=== PATIENT | female | born 1965 | race Caucasian/White ===

== ENCOUNTER 2021-12-11 08:34 | Day surgery (SDC) | payer OTHER ==
[2021-12-06 10:40] VITALS: BMI 24.7
[~2021-12-11 08:34] MED LIST: LACTATED RINGERS 1,000 ML IV SCH; LIDOCAINE 1% (10MG/ML) FOR IV START INTRADERMA PRN
[2021-12-11 09:11] VITALS: TEMP 98.9
[2021-12-11] MEDS ORDERED: PROPOFOL 10 MG/ML 20 ML VIAL IV ONE (09:56)
--- NOTE | 2021-12-11 10:13 | P.PCN ---
Date of Procedure: 12/11/21 Procedure(s) Performed: BRIEF HISTORY: Patient is a 56-year-old pleasant female scheduled for an elective colonoscopy as a part of evaluation of prior history of colon polyps. PROCEDURE PERFORMED: Colonoscopy. PREOPERATIVE DIAGNOSIS: History of colon polyps. IV sedation per Anesthesia. PROCEDURE: After informed consent was obtained, the patient, was brought into the endoscopy unit. IV sedation was administered by Anesthesia under continuous monitoring. Digital rectal examination was normal. Initially the Olympus CF-160 flexible video colonoscope was then inserted in the rectum, gradually advanced into the cecum without any difficulty. Careful examination was performed as the scope was gradually being withdrawn. Ileocecal valve and the appendiceal orifice were visualized and appeared normal. Prep was excellent. Mucosa of the cecum, ascending colon, transverse colon, descending colon, sigmoid colon, and rectum appeared normal. Retroflexion was performed in the rectum and no lesions were seen. The patient tolerated the procedure well. IMPRESSION: Normal-appearing colon from rectum to cecum with no evidence of colorectal neoplasia RECOMMENDATIONS: Findings of this examination were discussed with the patient as well as her family. She was advised to have a repeat screening colonoscopy in 10 years..
[2021-12-11 10:20] VITALS: RESP 14
[2021-12-11 10:55] VITALS: BP 144/86; PULSE 70
== END 2021-12-11 11:24 | disposition home or self-care (01) ==
LOC: ORWHC2ENDO 08:34
PROVIDERS: ATTEND Internal Medicine Gastroenterology
DX: Z12.11 Encounter for screening for malignant neoplasm of colon (principal); Z86.010 Personal history of colon polyps; K21.9 Gastro-esophageal reflux disease without esophagitis; F17.200 Nicotine dependence, unspecified, uncomplicated; M19.90 Unspecified osteoarthritis, unspecified site; Z85.41 Personal history of malignant neoplasm of cervix uteri; Z79.1 Long term (current) use of non-steroidal anti-inflammatories (NSAID); Z79.899 Other long term (current) drug therapy
CPT/HCPCS: J2704; G0105; 45378

== ENCOUNTER → 2022-10-29 | Outpatient (CLI) | payer OTHER ==
[2022-10-29 14:31] LABS: Basophils # (A) 0.05 X 10*3/uL (0.00-0.10); Basophils % (A) 0.7 %; Eosinophils # (A) 0.16 X 10*3/uL (0.04-0.35); Eosinophils % (A) 2.2 %; HCT 44.3 % (37.2-46.3); HGB 14.2 g/dL (12.0-15.0); Immature Grans, Automated 0.3 %; Lymphocytes # (A) 2.93 X 10*3/uL (0.90-5.00); MCH 31.3 pg (27.0-32.0); MCHC 32.1 g/dL (32.0-37.0); MCV 97.6 fL (80.0-97.0); Mean Platelet Volume 10.2 fL (9.5-12.2); Monocytes # (A) 0.53 X 10*3/uL (0.20-1.00); Monocytes % (A) 7.2 %; NRBC Per 100 WBC 0 /100 WBCS (0.0-0.0); Neutrophils # (A) 3.64 X 10*3/uL (1.80-7.70); Neutrophils % (A) 49.6 %; Platelet Count 348 X 10*3/uL (140-440); RBC 4.54 X 10*6/uL (4.10-5.20); WBC 7.33 X 10*3/uL (4.50-10.00)
== END | disposition home or self-care (01) ==
LOC: LABPAT 10:17
PROVIDERS: ATTEND Obstetrics & Gynecology
DX: Z01.812 Encounter for preprocedural laboratory examination (principal); N95.0 Postmenopausal bleeding; D25.9 Leiomyoma of uterus, unspecified
CPT/HCPCS: 36415; 85025

== ENCOUNTER 2022-11-11 10:02 | Day surgery (SDC) | payer OTHER ==
[2022-11-07 14:35] VITALS: BMI 24.2
--- NOTE | 2022-11-08 13:19 | P.HPIHPCON ---
History of Present Illness H&P Date: 11/08/22 Chief Complaint: Postmenopausal Bleeding This is a 56 year old postmenopausal whose LMP was 10 years ago who reports several episodes postmenopausal bleeding over the past few years. On pelvic US uterus is 5 x 4 x 3 cm with endometrial thickness of 2.1 mm and fluid collection of 1.7 mm. There is a small intramural posterior fibroid measuring 1 cm. There are post-surgical changes noted s/p endometrial ablation. Right ovary has a small 1cm simple cyst. Left ovary is normal. Endometrial biopsy was attempted given the finding of fluid collection inside the endometrium, but the biopsy could not be performed due to cervical stenosis. Past Medical History: Asthma, gall stones, hearing loss Past Surgical History: Appendectomy, Endometrial Ablation, Cholecystectomy, Hysteroscopy D&C Polypectomy Social History: Negative for EtOH, tobacco, and illicit drugs Family History: Non-contributory Consent for Procedure: I have explained the operation/procedure to the patient, including the risks, benefits, side effects, alternative therapies (including not receiving the proposed treatment or service), the likelihood of the patient achieving his/her goals, and potential recuperation problems for the procedure/sedation/analgesia, as well as any blood products, if indicated. I also explained to the patient the risks, benefits and side effects of the alternatives, as well as the risks related to not receiving the proposed procedure, care, treatment, or services. Past Medical History Past Medical History: Cancer, GERD/Reflux, Osteoarthritis (OA) Additional Past Medical History / Comment(s): CAME FROM [facility] IN AUG 2021- SPEAKS SOME [place]., HX COLON POLYP, CERVICAL CANCER., ARTHRITIS, BACK PAIN. History of Any Multi-Drug Resistant Organisms: None Reported Additional Past Surgical History / Comment(s): COLONOSCOPY, SURGERY FOR CERVICAL CANCER, Past Anesthesia/Blood Transfusion Reactions: No Reported Reaction Smoking Status: Current every day smoker, Vaper - Past Family History Mother Family Medical History: Cancer Daughter(s) Family Medical History: Cancer Sister(s) Family Medical History: Cancer Medications and Allergies Home Medications Medication Instructions Recorded Confirmed Type Acetaminophen Tab [Tylenol Tab] 500 mg PO BID 12/06/21 11/07/22 History Ibuprofen 600 mg PO BID 12/06/21 11/07/22 History Allergies Allergy/AdvReac Type Severity Reaction Status Date / Time No Known Allergies Allergy Verified 11/07/22 14:19 Surgical - Exam Limited exam is performed. Patient in no apparent distress, pleasant - General well developed, well nourished, no distress - Neck no masses thyroid nodule: absent, lymphadenopathy: absent - Respiratory normal respiratory effort, clear to auscultation - Cardiovascular Heart Sounds: normal: S1, S2 - Abdomen Abdomen: soft, non tender - Genitourinary normal external genitalia Assessment and Plan Assessment: This is a 56 year old postmenopausal with postmenopausal bleeding and an endometrial fluid collection on US for whom EMB in the office was not possible due to cervical stenosis Plan: Proceed to OR for hysteroscopy D&C with Myosure device. Risks, benefits, and alternates to surgery were reviewed and all questions answered. Proceed with surgery as scheduled. Time with Patient: Less than 30
[~2022-11-11 10:02] MED LIST changes: +DEXAMETHASONE SOD PHOSPHATE 4 MG/ML 1 ML VIAL IV ONE; +HYDROmorphone 0.5 MG/0.5 ML SYRINGE IVP PRN; -LIDOCAINE 1% (10MG/ML) FOR IV START INTRADERMA PRN; +MIDAZOLAM 2 MG/2 ML VIAL IV PRN; +ONDANSETRON 4 MG/2 ML VIAL IVP ONE; +Pre Op ABX Message 1 EACH MISC MISCELLANE ONE; +SCOPOLAMINE 1 MG/72 HR PATCH TRANSDERM ONE
[2022-11-11] MEDS ORDERED: fentaNYL (PF) 50 MCG/ML 2 ML AMP ONE (12:52)
[2022-11-11] MEDS ORDERED: KETOROLAC 15 MG/ML 1 ML VIAL ONE (12:52)
[2022-11-11] MEDS ORDERED: LIDOCAINE 2% INJ 20 MG/ML (2 ML VIAL) ONE (12:52)
[2022-11-11] MEDS ORDERED: MIDAZOLAM 2 MG/2 ML VIAL ONE (12:52)
[2022-11-11] MEDS ORDERED: PROPOFOL 10 MG/ML 20 ML VIAL IV ONE (12:52)
[2022-11-11 13:43] VITALS: TEMP 97
--- NOTE | 2022-11-11 13:59 | P.OP ---
Date of Procedure: 11/11/22 Preoperative Diagnosis: Postmenopausal bleeding, cervical stenosis, endometrial fluid collection on ultrasound Postoperative Diagnosis: Same Procedure(s) Performed: Hysteroscopy D&C Implants: None Anesthesia: MARLONA Surgeon: Huong Leon Equal Opportunity Specialist #1: Irene Vergara Estimated Blood Loss (ml): 5 IV fluids (ml): 600 Urine output (ml): 200 Pathology: other (endometrial curettings) Condition: stable Disposition: same day Indications for Procedure: 56 y/o with postmenopausal bleeding and endometrial fluid collect on ultrasound. Endometrial biopsy was unable to be performed in the office due to a stenotic cervix. Patient was counseled on the risks, including hemorrhage, infection, and injury to surrounding structures. Patient was also counseled on the benefits, indication, and alternatives to the procedure. Patient agreed to the plan of care, all questions were answered, and consents signed. Operative Findings: Tubular 8cm uterus. Bilateral ostia unable to be visualized 2/2 stenotic cervix unable to accommodate the hygroscope. Grossly normal appearing uterine cavity. Endometrial curettings were sent to pathology Description of Procedure: The patient was taken to the operating room where a time out was performed to confirm correct patient and correct procedure. General anesthesia was established. The patient was then positioned on the operating table in dorsal lithotomy position in Renan type stirrups. The patient was then prepped and draped in the normal sterile fashion. Weighted speculum was introduced into the posterior fornix of the vagina and retractor was used to visualize the cervix. A single tooth tenaculum was used to grasp the anterior lip of the cervix. The cervical os was gently dilated with Richard dilators in order to accommodate the 5mL 30 degree hysteroscope. The 5mL 30 degree hysteroscope was then introduced under direct visualization into the uterine cavity which was extended using sterile saline solution as the extending media. The hysteroscopy was not able to be inserted fully into the uterine cavity 2/2 stenotic cervix as noted above. The hysteroscope was then taken out of the uterine cavity. Gentle sharp curettage was performed on the uterine cavity. The endometrial curettings were sent to pathology. All instruments were removed from the vagina. Patient tolerated the procedure well. Sponge, lap, needle, and instrument counts were correct times two. Patient was taken to recovery in stable condition. Patient will go home after meeting post operative milestones per anesthesia. Patient was given prescriptions for pain medication and instructions to follow up in the office in two weeks time.
[2022-11-11 14:00] VITALS: RESP 16
[2022-11-11 14:53] VITALS: BP 138/89; PULSE 65
== END 2022-11-11 15:11 | disposition home or self-care (01) ==
LOC: OR 10:02
PROVIDERS: ATTEND Obstetrics & Gynecology Obstetrics
DX: N95.0 Postmenopausal bleeding (principal); N88.2 Stricture and stenosis of cervix uteri; J45.909 Unspecified asthma, uncomplicated; M19.90 Unspecified osteoarthritis, unspecified site; K21.9 Gastro-esophageal reflux disease without esophagitis; H91.90 Unspecified hearing loss, unspecified ear; Z87.19 Personal history of other diseases of the digestive system; Z90.49 Acquired absence of other specified parts of digestive tract; Z98.890 Other specified postprocedural states; F17.290 Nicotine dependence, other tobacco product, uncomplicated; Z85.41 Personal history of malignant neoplasm of cervix uteri; Z79.1 Long term (current) use of non-steroidal anti-inflammatories (NSAID)
CPT/HCPCS: 58558; J2250; J1100; J2405; J3010; J1885; J2704; J1170; J2001; 88305